=== PATIENT | female | born 1990 | race Caucasian/White ===

== ENCOUNTER 2019-03-15 11:15 | Emergency (ER) | payer OTHER ==
[~2019-03-15] VITALS: Ht 165.1 cm; Wt 80.3 kg
[2019-03-15] MEDS ORDERED: BIRTH CONTROL PO (11:29)
[2019-03-15 11:50] LABS: ABSOLUTE EOSINOPHILS 0.1 thou/uL (0.0-0.7); ABSOLUTE LYMPHOCYTES 1.8 thou/uL (0.8-5.3); ABSOLUTE MONOCYTES 0.4 thou/uL (0.0-1.2); ABSOLUTE NEUTROPHILS 4.2 thou/uL (1.6-8.1); BASOPHILS 0.4 %; EOSINOPHILS 1.1 %; HEMATOCRIT 37.9 % (37.0-47.0); HEMOGLOBIN 13.3 gm/dL (12.0-15.0); LYMPHOCYTES 27.8 %; MCH 29.9 pg (26.0-34.0); MCV 85.6 fL (80.0-100.0); MONOCYTES 5.6 %; MPV 7.6 fl. (7.2-11.1); NUCLEATED RBCS 0 /100WBC; PLATELET COUNT* 355 thou/uL (150-400); POLYS 65.1 %; RBC 4.43 mil/uL (4.20-5.00); RDW-CV 12.9 % (10.5-14.5); WBC 6.4 thou/uL (4.0-11.0)
[2019-03-15 11:58] LABS: CALCIUM 8.7 mg/dL (8.5-10.1); CREATININE 0.8 mg/dL (0.6-1.3); POTASSIUM 3.7 mmol/L (3.5-5.1)
[2019-03-15 12:03] LABS: ALBUMIN 4.2 g/dL (3.4-5.0); TOTAL BILIRUBIN 0.7 mg/dL (<0.1-1.0); TOTAL PROTEIN 7.9 g/dL (6.4-8.2)
[2019-03-15 13:27] LABS: URINE BILIRUBIN NEGATIVE (Negative); URINE BLOOD NEGATIVE (Negative); URINE CLARITY CLEAR; URINE COLOR YELLOW; URINE GLUCOSE-RANDOM NEGATIVE (Negative); URINE KETONES 2+ (Negative); URINE LEUKOCYTES-REFLEX NEGATIVE (Negative); URINE NITRITE-REFLEX NEGATIVE (Negative); URINE PROTEIN NEGATIVE (Negative); URINE SPECIFIC GRAVITY 1.025 (1.005-1.030); URINE UROBILINOGEN 0.2 E.U./dl (0.2-1.0)
[2019-03-15 13:45] VITALS: BP 111/71
--- NOTE | 2019-03-15 16:06 | EKG ---
[place] [address] ELECTROCARDIOGRAM REPORT Name: SILVIA GERMAN Room: [facility]#: [id number] Admission: 03/15/19 Attend Phys: Discharge: 03/15/19 Date of : 88 Report #: [id number] THIS REPORT FOR: //name// [facility] ED Test Date: 2019-03-15 Test Time: 11:44:29 Pat Name: SILVIA MAXI Department: Room: Gender: F Dancing Instructor: : 1990 Requested By: Tsering Bloom Order Number: [id number] MD: Ryne Fraser Measurements Intervals [place] Rate: 63 P: 10 NC: 165 QRS: 58 QRSD: 98 T: 23 QT: 415 QTc: 425 Interpretive Statements Sinus rhythm No previous ECG available for comparison Electronically Signed On 03-15-2019 16:06:17 GASTROENTEROLOGY PROFESSOR by Ryne Fraser [email or web address] <ELECTRONICALLY SIGNED> By: Ryne Fraser MD, [facility] 03/15/19 1606 1144 1144 Ryne Fraser MD, FACC /EPI
== END 2019-03-15 13:47 | disposition home or self-care (01) ==
LOC: M.ERS 11:15
PROVIDERS: Nurse Practitioner Family
DX: I95.1 Orthostatic hypotension (principal); M53.3 Sacrococcygeal disorders, not elsewhere classified; E86.0 Dehydration; Z98.84 Bariatric surgery status